=== PATIENT | female | born 1990 | race Caucasian/White ===

== ENCOUNTER 2017-06-29 19:15 | Emergency (ER) | payer OTHER ==
[2017-06-29] MEDS ORDERED: Bacitracin Oint 1 GM U/D Packet TOP ONE (21:25)
--- NOTE | 2017-06-29 21:30 | EDM.PDOC ---
ED HPI GENERAL MEDICAL PROBLEM - General Chief Complaint: Laceration Stated Complaint: CUT PINKY AND RING FINGER RIGHT HAND Time Seen by Provider: 06/29/17 21:20 Source of Information: Reports: Patient History Limitations: Reports: No Limitations - History of Present Illness INITIAL COMMENTS - FREE TEXT/NARRATIVE: laceration to 4th and 5th finger; this is a 26 year old female present to ER for laceration repair. She was carving pumpkins with her daughter when the paring knife slipped. bleeding controlled with wash cloth. no other concerns. Td up to date. 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: Dressing(s) right 4th and 5th finger Pain Score (Numeric/FACES): 1 - Related Data Allergies Allergy/AdvReac Type Severity Reaction Status Date / Time No Known Allergies Allergy Verified 06/29/17 20:50 Home Meds: Home Meds Dextroamphetamine/Amphetamine [Adderall Xr 30 mg Capsule] 30 mg PO DAILY [History] Escitalopram Oxalate [Lexapro] 2.5 mg PO DAILY 06/29/17 [History] 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: Psychiatric History: Reports: Anxiety - Infectious Disease History Infectious Disease History: Reports: Chicken Pox - Past Surgical History GI Surgical History: Reports: Hernia Repair/Other Social & Family History - Tobacco Use Smoking Status *Q: Never Smoker - Caffeine Use Caffeine Use: Reports: Coffee, Soda, Tea - Recreational Drug Use Recreational Drug Use: No - Living Situation & Occupation Occupation: Employed ([employer] 10 years.) ED ROS GENERAL - Review of Systems Review Of Systems: See Below Constitutional: Reports: No Symptoms Skin: Reports: Wound Hematologic/Lymphatic: Reports: No Symptoms Immunologic: Reports: No Symptoms ED EXAM, SKIN/RASH Exam: See Below Exam Limited By: No Limitations General Appearance: Alert, WD/WN, No Apparent Distress Head: Atraumatic, Normocephalic Neck: Supple Respiratory/Chest: No Respiratory Distress Extremities: Normal Inspection, Normal Capillary Refill, Other (laceration noted to right palmar side of finger 4,5) Neurological: Alert, Oriented Psychiatric: Normal Affect, Normal Mood Skin: Warm, Dry, No Rash, Wound/Incision Location, Skin: Other (laceration to palmar side of fingers 4th and 5th.) Characteristics: Linear Associated features: Tenderness Lymphatic: No Adenopathy ED SKIN PROCEDURES - Laceration/Wound Repair Right Anterior Proximal Finger Lac/Wound length In cm: 1 (right 5th finger) Appearance: Subcutaneous Distal NVT: Neuro & Vascular Intact Anesthetic Type: Local Local Anesthesia - Lidocaine (Xylocaine): 1% Plain Local Anesthetic Volume: 1cc Skin Prep: Chlorhexidine (Hibiciens), Saline Exploration/Debridement/Repair: Wound Explored Closed with: Sutures Suture Size: 4-0 # of Sutures: 3 Suture Type: Prolene, Interrupted, Simple Sterile Dressing Applied: Nurse Tetanus Status Addressed: Yes (td up to date) Complications: No Right Proximal Finger Lac/Wound length In cm: 1 (rt 4th finger) Appearance: Subcutaneous Distal NVT: Neuro & Vascular Intact Anesthetic Type: Local Local Anesthesia - Lidocaine (Xylocaine): 1% Plain Local Anesthetic Volume: 1cc Skin Prep: Chlorhexidine (Hibiciens) Exploration/Debridement/Repair: Wound Explored Closed with: Sutures Suture Size: 4-0 # of Sutures: 3 Suture Type: Prolene, Interrupted, Simple Sterile Dressing Applied: Nurse Tetanus Status Addressed: Yes Complications: No Course - Vital Signs Last Recorded V/S: Last Vital Signs Temp 37.3 C 06/29/17 20:51 Pulse 100 06/29/17 20:51 Resp 17 06/29/17 20:51 BP 126/74 06/29/17 20:51 Pulse Ox 99 06/29/17 20:51 - Orders/Labs/Meds Meds: Medications Discontinued Medications Generic Name Dose Route Start Last Admin Trade Name Freq PRN Reason Stop Dose Admin Bacitracin 1 dose 06/29/17 21:25 Bacitracin Oint 1 Gm TOP 06/29/17 21:26 ONETIME ONE Lidocaine HCl 5 ml 06/29/17 21:23 Xylocaine-Mpf 1% INJECT 06/29/17 21:24 ONETIME ONE Departure - Departure Time of Disposition: 22:12 Disposition: Home, Self-Care 01 Condition: Good Clinical Impression: Laceration of right ring finger, Laceration of right little finger - Discharge Information Instructions: Stitches, Falls Of Rough, or Adhesive Wound Closure, [id number] Referrals: PCP,None [Primary Care Provider] - Forms: ED Department Discharge Care Plan Goals: laceration repair with sutures to right 4,5 finger -apply antibiotic ointment to wound two times a day for 3 days, then keep clean and dry -sutures out in 7 to 10 days -take over the counter Tylenol or Motrin for pain -return to clinic, urgent care or ER for any signs of infection; increased pain , fever, chills, redness, drainage or any concerns - Problem List & Annotations (1) Laceration of right ring finger SNOMED Code(s): 532468760 Code(s): S61.214A - LACERATION W/O FB OF R RNG FNGR W/O DAMAGE TO NAIL, INIT Status: Acute Priority: High Current Visit: Yes (2) Laceration of right little finger SNOMED Code(s): 763352001 Code(s): S61.216A - LAC W/O FB OF R LITTLE FINGER W/O DAMAGE TO NAIL, INIT Status: Acute Priority: High Current Visit: Yes Qualifiers: Encounter type: initial encounter Damage to nail status: without damage Foreign body presence: without foreign body Qualified Code(s): S61.216A - Laceration without foreign body of right little finger without damage to nail, initial encounter - Problem List Review Problem List Initiated/Reviewed/Updated: Yes - Assessment/Plan Plan: laceration repair with sutures to right 4,5 finger -apply antibiotic ointment to wound two times a day for 3 days, then keep clean and dry -sutures out in 7 to 10 days -take over the counter Tylenol or Motrin for pain -return to clinic, urgent care or ER for any signs of infection; increased pain , fever, chills, redness, drainage or any concerns
== END 2017-06-29 22:28 | disposition home or self-care (01) ==
LOC: JP.ED 19:15
DX: S61.214A Laceration without foreign body of right ring finger without damage to nail, initial encounter (principal); S61.216A Laceration without foreign body of right little finger without damage to nail, initial encounter; W26.0XXA Contact with knife, initial encounter
CPT/HCPCS: 12001; 99283; 99283-25

== ENCOUNTER 2017-09-22 03:17 | Emergency (ER) | payer OTHER ==
--- NOTE | 2017-09-22 04:10 | EDM.PDOC ---
ED HPI GENERAL MEDICAL PROBLEM - General Chief Complaint: Abdominal Pain Stated Complaint: ABDOMINAL PAIN Time Seen by Provider: 09/22/17 03:50 Source of Information: Reports: Patient, RN History Limitations: Reports: No Limitations - History of Present Illness INITIAL COMMENTS - FREE TEXT/NARRATIVE: 27 yo female presents with nausea and no vomiting for the past couple weeks. She had taken a home test in Aug that was positive, but then had a heavy period after that. Is new in the area from [place] so didn't have anyone to go to so did nothing. Here now because the nausea is getting worse and keeping her awake. No dysuria. Mild low abdominal discomfort. No fever. Onset: Gradual Duration: Week(s):, Constant Location: Reports: Abdomen Quality: Reports: Dull Severity: Mild Improves with: Reports: None Worsens with: Reports: None Context: Reports: Other (Has IUD) Associated Symptoms: Reports: Nausea/Vomiting (No vomiting) Treatments INVENTORY SPECIALIST: Reports: Other (see below) (none) lower abdomen Pain Score (Numeric/FACES): 4 - Related Data Allergies Allergy/AdvReac Type Severity Reaction Status Date / Time No Known Allergies Allergy Verified 09/22/17 03:35 Home Meds: Home Meds Dextroamphetamine/Amphetamine [Adderall Xr 30 mg Capsule] 30 mg PO DAILY [History] Escitalopram Oxalate [Lexapro] 2.5 mg PO DAILY 06/29/17 [History] 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 Psychiatric History: Reports: Anxiety, Depression - Infectious Disease History Infectious Disease History: Reports: Chicken Pox - Past Surgical History GI Surgical History: Reports: Hernia Repair/Other Other Female Surgeries/Procedures: IUD Social & Family History - Tobacco Use Smoking Status *Q: Former Smoker Used Tobacco, but Quit: Yes Month Tobacco Last Used: 6 months ago - Caffeine Use Caffeine Use: Reports: Coffee, Soda - Recreational Drug Use Recreational Drug Use: No - Living Situation & Occupation Occupation: Employed ([employer] x 10 years.) ED ROS GENERAL - Review of Systems Review Of Systems: See Below Constitutional: Reports: No Symptoms HEENT: Reports: No Symptoms Respiratory: Reports: No Symptoms Cardiovascular: Reports: No Symptoms Endocrine: Reports: No Symptoms GI/Abdominal: Reports: Abdominal Pain (mild, low), Nausea (mild). Denies: Black Stool, Bloody Stool, Constipation, Diarrhea, Distension, Hematemesis, Hematochezia, Melena, Vomiting : Reports: No Symptoms Musculoskeletal: Reports: No Symptoms Skin: Reports: No Symptoms Neurological: Reports: No Symptoms ED EXAM, GI/ABD - Physical Exam Exam: See Below Exam Limited By: No Limitations General Appearance: Alert, WD/WN, No Apparent Distress Eyes: Bilateral: Normal Appearance Ears: Normal External Exam, Normal Canal, Hearing Grossly Normal Nose: Normal Inspection, Normal Mucosa Throat/Mouth: Normal Inspection, Normal Lips, Normal Oropharynx, Normal Voice, No Airway Compromise Head: Atraumatic, Normocephalic Neck: Normal Inspection, Supple Respiratory/Chest: No Respiratory Distress, Lungs Clear, Normal Breath Sounds, No Accessory Muscle Use Cardiovascular: Regular Rate, Rhythm, No Edema GI/Abdominal Exam: Normal Bowel Sounds, Soft, Tender (Very slight suprapubic). No: No Distention, Distended, Rigid, Rebound, Abnormal Bowel Sounds, Hernia, Mass Back Exam: Normal Inspection. No: CVA Tenderness (R), CVA Tenderness (L) Extremities: Normal Inspection, Normal Range of Motion, Non-Tender, No Pedal Edema Neurological: Alert, Oriented, CN II-XII Intact, Normal Cognition, No Motor/ Sensory Deficits Psychiatric: Normal Affect, Normal Mood Skin Exam: Warm, Dry, Intact, Normal Color, No Rash Lymphatic: No Adenopathy Course - Vital Signs Last Recorded V/S: Last Vital Signs Temp 36.4 C 09/22/17 03:32 Pulse 89 09/22/17 03:32 Resp 16 09/22/17 03:32 BP 121/79 09/22/17 03:32 Pulse Ox 96 09/22/17 03:32 Departure - Departure Time of Disposition: 04:12 Disposition: Home, Self-Care 01 Condition: Good Clinical Impression: Nausea - Discharge Information Referrals: PCP,None [Primary Care Provider] - Forms: ED Department Discharge Additional Instructions: Use Zofran as needed for nausea control. Use acetaminophen as needed for pain relief. Get in to the clinic to get established for care adalberto and to decide what to do with your IUD.
== END 2017-09-22 04:14 | disposition home or self-care (01) ==
LOC: JP.ED 03:17
DX: R11.0 Nausea (principal); F32.9 Major depressive disorder, single episode, unspecified
CPT/HCPCS: 99284

== ENCOUNTER 2019-04-01 09:02 | Emergency (ER) | payer OTHER ==
[2019-04-01] MEDS ORDERED: Tetracaine HCl/PF 0.5% 4 ML Bottle EYERT ONE (09:16)
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
[2019-04-01] MEDS ORDERED: Gentamicin 0.3% Ophth Soln 5 ML Bottle EYERT ONE (09:30)
[2019-04-01] MEDS ORDERED: Ibuprofen 600 MG Tab PO ONE (09:47)
== END 2019-04-01 09:50 | disposition home or self-care (01) ==
LOC: JP.ED 09:02
DX: S05.01XA Injury of conjunctiva and corneal abrasion without foreign body, right eye, initial encounter (principal); H00.033 Abscess of eyelid right eye, unspecified eyelid; Z79.899 Other long term (current) drug therapy; F41.9 Anxiety disorder, unspecified; F32.9 Major depressive disorder, single episode, unspecified; X58.XXXA Exposure to other specified factors, initial encounter
CPT/HCPCS: 99283; A9270

== ENCOUNTER 2019-04-07 14:19 | Emergency (ER) | payer OTHER ==
[2019-04-07] MEDS ORDERED: Bacitracin Oint 1 GM U/D Packet TOP ONE (14:44)
--- NOTE | 2019-04-07 14:49 | EDM.PDOC ---
ED HPI GENERAL MEDICAL PROBLEM - General Chief Complaint: Laceration Stated Complaint: RIGHT HAND CUT Time Seen by Provider: 04/07/19 14:40 Source of Information: Reports: Patient History Limitations: Reports: No Limitations - History of Present Illness INITIAL COMMENTS - FREE TEXT/NARRATIVE: Caridad is a 28 year old female, otherwise healthy, presents to the ED today with right hand laceration after a glass broke while doing dishes today. DT up to date, denies any injuries. 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 ED EXAM, SKIN/RASH Exam: See Below Exam Limited By: No Limitations General Appearance: Alert, WD/WN, No Apparent Distress Throat/Mouth: Normal Inspection Head: Atraumatic Neck: Supple Respiratory/Chest: No Respiratory Distress Cardiovascular: Regular Rate, Rhythm Extremities: Normal Inspection Neurological: Alert, Oriented, CN II-XII Intact Psychiatric: Normal Affect, Normal Mood Skin: Warm, Dry, Other (1 cm u shaped laceration to right distal fifth metacarpal region, dorsal apsect, full flexion/extension of digits) Lymphatic: No Adenopathy ED SKIN PROCEDURES - Laceration/Wound Repair Right Dorsal Hand Anesthetic Type: Local Local Anesthesia - Lidocaine (Xylocaine): 1% Plain Local Anesthetic Volume: 3cc Skin Prep: Chlorhexidine (Hibiciens) Closed with: Sutures Suture Size: 5-0 # of Sutures: 4 Course - Vital Signs Last Recorded V/S: Last Vital Signs Temp 35.4 C 04/07/19 14:41 Pulse 100 04/07/19 14:41 Resp 19 04/07/19 14:41 BP 134/92 H 04/07/19 14:41 Pulse Ox 97 04/07/19 14:41 Caridad is a 28 year old female who presents to the ED today after sustaining a right hand laceration. DT up to date. Suture repair done as noted above, no evidence of FB, ligamentous or tendon injury. Wound care discussed, SR in 7 days. Reasons to return to the ED discussed, patient agreeable and discharged in stable condition. - Orders/Labs/Meds Orders: Active Orders 24 hr Category Date Time Status Bacitracin [Bacitracin Oint 1 GM] Med 04/07/19 14:44 Once 1 dose TOP ONETIME ONE Meds: Medications Discontinued Medications Generic Name Dose Route Start Last Admin Trade Name Freq PRN Reason Stop Dose Admin Lidocaine HCl 5 ml 04/07/19 14:43 Xylocaine-Mpf 1% INJECT 04/07/19 14:44 ONETIME ONE Departure - Departure Time of Disposition: 15:15 Disposition: Home, Self-Care 01 Clinical Impression: Laceration of hand Qualifiers: Encounter type: initial encounter Foreign body presence: without foreign body Laterality: right Qualified Code(s): S61.411A - Laceration without foreign body of right hand, initial encounter - Discharge Information Instructions: Laceration Care, Adult Referrals: PCP,None [Primary Care Provider] - Additional Instructions: Suture removal in 7 days. Ibuprofen/Tylenol for pain as needed. Bacitracin twice daily for 3 days. - My Orders Last 24 Hours: My Active Orders 04/07/19 14:44 Bacitracin [Bacitracin Oint 1 GM] 1 dose TOP ONETIME ONE - Assessment/Plan Last 24 Hours: My Active Orders 04/07/19 14:44 Bacitracin [Bacitracin Oint 1 GM] 1 dose TOP ONETIME ONE
== END 2019-04-07 15:26 | disposition home or self-care (01) ==
LOC: JP.ED 14:19
DX: S61.411A Laceration without foreign body of right hand, initial encounter (principal); F41.9 Anxiety disorder, unspecified; F32.9 Major depressive disorder, single episode, unspecified; Z79.899 Other long term (current) drug therapy; Z88.0 Allergy status to penicillin; W25.XXXA Contact with sharp glass, initial encounter
CPT/HCPCS: 12001; 99282; J2001

== ENCOUNTER 2019-05-29 11:27 | Emergency (ER) | payer OTHER ==
[2019-05-29] MEDS ORDERED: fentaNYL 100 MCG/2 ML SDV NASBOTH ONE (14:07)
[2019-05-29] MEDS ORDERED: Ondansetron 4 MG Tab.DIS PO ONE (14:08)
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
[2019-06-01 11:08] LABS: CHLAMYDIA TRACHOMATIS, NAA Negative (Negative); NEISSERIA GONORRHOEAE, NAA Negative (Negative)
== END 2019-05-29 18:20 | disposition home or self-care (01) ==
LOC: JP.ED 11:27
DX: T74.21XA Adult sexual abuse, confirmed, initial encounter (principal); S00.81XA Abrasion of other part of head, initial encounter; F32.9 Major depressive disorder, single episode, unspecified; F41.9 Anxiety disorder, unspecified; Z88.0 Allergy status to penicillin; Z79.899 Other long term (current) drug therapy
CPT/HCPCS: 36415; 70450; 70486; 84703; 86695; 86696; 86704; 87210; 87389; 87449; 87491; 87591; 99285; A9270; J3010

== ENCOUNTER 2019-05-29 11:27 | Emergency (ER) | payer OTHER | END 2019-05-29 18:20 | disposition home or self-care (01) | LOC: JP.ED 11:27 | DX: Z53.21 Procedure and treatment not carried out due to patient leaving prior to being seen by health care provider (principal) | CPT/HCPCS: 70450; 70486; A9270-GY; J3010 ==

== ENCOUNTER 2021-04-04 16:30 | Emergency (ER) | payer MEDICAID, OTHER ==
[2021-04-04] MEDS ORDERED: diphenhydrAMINE 50 MG/ML SDV IVPUSH ONE (17:21)
[2021-04-04] MEDS ORDERED: Sodium Chloride 0.9% 10 ML Syringe FLUSH PRN (17:21)
[2021-04-04] MEDS ORDERED: Lactated Ringers 1,000 ML IV ONE (17:21)
[2021-04-04] MEDS ORDERED: Acetaminophen 325 MG Tab PO ONE (17:22)
--- NOTE | 2021-04-04 17:25 | EDM.PDOC ---
ED HPI GENERAL MEDICAL PROBLEM - General Chief Complaint: Headache Stated Complaint: HEADACHE/MIGRAINE Time Seen by Provider: 04/04/21 17:14 Source of Information: Reports: Patient, RN Notes Reviewed History Limitations: Reports: No Limitations - History of Present Illness INITIAL COMMENTS - FREE TEXT/NARRATIVE: 30-year-old female presents emergency department day complaint of headache she is currently 28 weeks intrauterine states that headache for the last couple days did try some Tylenol minimal relief she is not really having any difficulties with vision no spots no visual pain no problems with urination she still feeling baby move has not had any big gush of fluid no vaginal bleeding headache Pain Score (Numeric/FACES): 3 - Related Data Allergies Allergy/AdvReac Type Severity Reaction Status Date / Time Penicillins Allergy Hives Verified 04/04/21 16:57 Home Meds: Home Meds Sertraline [Zoloft] 25 mg PO DAILY 04/04/21 [History] 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 Psychiatric History: Reports: Anxiety, Depression - Infectious Disease History Infectious Disease History: Reports: Chicken Pox - Past Surgical History GI Surgical History: Reports: Hernia Repair/Other, Other (See Below) Other GI Surgeries/Procedures: volvulus Other Female Surgeries/Procedures: IUD Social & Family History - Tobacco Use Tobacco Use Status *Q: Never Tobacco User - Caffeine Use Caffeine Use: Reports: Coffee, Soda - Recreational Drug Use Recreational Drug Use: No - Living Situation & Occupation Occupation: Employed ([employer] x 10 years.) ED ROS GENERAL - Review of Systems Review Of Systems: See Below Respiratory: Reports: No Symptoms Cardiovascular: Reports: No Symptoms GI/Abdominal: Reports: No Symptoms Neurological: Reports: Headache - Physical Exam Exam: See Below Exam Limited By: No Limitations General Appearance: Alert, WD/WN, No Apparent Distress Eye Exam: Bilateral Eye: EOMI, Normal Fundi, PERRL Respiratory/Chest: No Respiratory Distress Neuro Exam (Abbreviated): Alert, Oriented, CN II-XII Intact, No Motor/Sensory Deficits Course - Vital Signs Last Recorded V/S: Last Vital Signs Temp 97.6 F 04/04/21 16:59 Pulse 83 04/04/21 17:34 Resp 12 04/04/21 17:34 BP 104/57 L 04/04/21 17:34 Pulse Ox 99 04/04/21 17:34 - Orders/Labs/Meds Orders: Active Orders 24 hr Category Date Time Status Peripheral IV Care [RC] . DIRECTED Care 04/04/21 17:21 Active Sodium Chloride 0.9% [Saline Flush] Med 04/04/21 17:21 Active 10 ml FLUSH ASDIRECTED PRN Peripheral IV Insertion Adult [OM.PC] Urgent Oth 04/04/21 17:21 Ordered Medication Orders Sodium Chloride (Sodium Chloride 0.9% 10 Ml Syringe) 10 ml FLUSH ASDIRECTED PRN PRN Reason: Keep Vein Open Last Admin: 04/04/21 17:34 Dose: 10 ml Documented by: JERRY Meds: Medications Generic Name Dose Route Start Last Admin Trade Name Freq PRN Reason Stop Dose Admin Sodium Chloride 10 ml 04/04/21 17:21 04/04/21 17:34 Sodium Chloride 0.9% 10 Ml Syringe FLUSH 10 ml ASDIRECTED PRN Administration Keep Vein Open Discontinued Medications Generic Name Dose Route Start Last Admin Trade Name Freq PRN Reason Stop Dose Admin Acetaminophen 975 mg 04/04/21 17:22 04/04/21 17:33 Acetaminophen 325 Mg Tab PO 04/04/21 17:23 975 mg NOW ONE Administration Diphenhydramine HCl 25 mg 04/04/21 17:21 04/04/21 17:33 Diphenhydramine 50 Mg/Ml Sdv IVPUSH 04/04/21 17:22 25 mg ONETIME ONE Administration Lactated Ringer's 1,000 mls @ 999 mls/hr 04/04/21 17:21 04/04/21 17:34 Ringers, Lactated IV 04/04/21 18:21 999 mls/hr BOLUS ONE Administration Departure - Departure Time of Disposition: 19:03 Disposition: Home, Self-Care 01 Condition: Fair Clinical Impression: Headache in Qualifiers: Trimester: third trimester Qualified Code(s): O26.893 - Other specified related conditions, third trimester; R51.9 - Headache, unspecified - Discharge Information Instructions: General Headache Without Cause, [id number] Referrals: Aura Rebolledo CNM [Primary Care Provider] - Forms: ED Department Discharge Additional Instructions: Continue with your regular medications, follow-up with your OB provider next week, call return to the emergency department worsening symptoms Sepsis Event Note (ED) - Evaluation Sepsis Screening Result: No Definite Risk - Focused Exam Vital Signs: Vital Signs Temp Pulse Resp BP Pulse Ox 04/04/21 17:34 83 12 104/57 L 99 04/04/21 16:59 97.6 F 85 16 111/62 98 04/04/21 16:42 97.6 F 85 16 111/62 98 - My Orders Last 24 Hours: My Active Orders 04/04/21 17:21 Peripheral IV Care [RC] . DIRECTED Sodium Chloride 0.9% [Saline Flush] 10 ml FLUSH ASDIRECTED PRN Peripheral IV Insertion Adult [OM.PC] Urgent - Assessment/Plan Last 24 Hours: My Active Orders 04/04/21 17:21 Peripheral IV Care [RC] . DIRECTED Sodium Chloride 0.9% [Saline Flush] 10 ml FLUSH ASDIRECTED PRN Peripheral IV Insertion Adult [OM.PC] Urgent Plan: Assessment Acuity = acute Site and laterality = headache Etiology = unknown Manifestations = none Location of injury = Home Lab values = none Plan Headache resolved combination 1 L fluids, Benadryl and Tylenol she will follow- up with her OB provider next week This note was dictated using [employer] voice recognition software please call with any questions on syntax or grammar.
== END 2021-04-04 19:12 | disposition home or self-care (01) ==
LOC: JP.ED 16:30
DX: O99.891 Other specified diseases and conditions complicating pregnancy (principal); R51.9 Headache, unspecified; Z88.0 Allergy status to penicillin; Z79.899 Other long term (current) drug therapy; Z3A.28 28 weeks gestation of pregnancy
CPT/HCPCS: 96365; 99283; A9270; J1200; J7120

== ENCOUNTER 2021-06-16 02:48 | Inpatient (IN) | payer OTHER, MEDICAID ==
[2021-06-16] MEDS ORDERED: ePHEDrine 50 MG/ML SDV ONE (06:09)
[2021-06-16] MEDS ORDERED: Lidocaine 1% 50 ML MDV ONE (06:10)
--- NOTE | 2021-06-16 06:52 | PCM.LDHP ---
L&D History of Present Illness - General Date of Service: 06/16/21 Admit Problem/Dx: Admission Diagnosis/Problem Admission Diagnosis/Problem Source of Information: Patient History Limitations: Reports: No Limitations - History of Present Illness Introduction:: 06/16/21 Patient is a 30 yo at 38 6/7 weeks gestation. She is here in active labor at term. She has had an uncomplicated . Contractions started last evening, mild, around 7 pm. She was able to fall asleep but contractions woke her up at 1230 and again at 2. At 2 am is when they became much stronger to the point she could not sleep. They have progressively gotten stronger since that time. She is GBS negative, A positive blood type, rubella immune, HIV/RPR/Hep B/C all non reactive. First was an uncomplicated water delivery. She plans for epidural this time. 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 LMP (Approximate): Other OB/BYN History: G-1 P-1 Psychiatric History: Reports: Anxiety, Depression - Infectious Disease History Infectious Disease History: Reports: Chicken Pox - Past Surgical History GI Surgical History: Reports: Hernia Repair/Other, Other (See Below) Other GI Surgeries/Procedures: volvulus Other Female Surgeries/Procedures: IUD Social & Family History - Caffeine Use Caffeine Use: Reports: Coffee, Soda - Living Situation & Occupation Occupation: Employed ([employer] x 10 years.) H&P Review of Systems - Review of Systems: Review Of Systems: See Below General: Reports: No Symptoms HEENT: Reports: No Symptoms Pulmonary: Reports: No Symptoms Cardiovascular: Reports: No Symptoms Gastrointestinal: Reports: No Symptoms Genitourinary: Reports: No Symptoms Musculoskeletal: Reports: No Symptoms Skin: Reports: No Symptoms Psychiatric: Reports: No Symptoms Neurological: Reports: No Symptoms Hematologic/Lymphatic: Reports: No Symptoms Immunologic: Reports: No Symptoms L&D Exam - Exam Exam: See Below - OB Specific Contraction Duration (sec): 80 Contraction Frequency (min): 2 Contraction Intensity: Strong Movement: Active Heart Tones: Present Heart Tones per Min: 130 Heart Rate (FHR) Variability: Moderate (6-25 bpm) Presentation: Vertex Estimated Weight: 7 lb - Exam General: Alert, Oriented HEENT: PERRLA, Pupils Equal, Pupils Reactive Neck: Supple, Trachea Midline Lungs: Clear to Auscultation, Normal Respiratory Effort Cardiovascular: Regular Rate, Regular Rhythm GI/Abdominal Exam: Normal Bowel Sounds, Soft, Pelvis Stable Rectal Exam: Normal Exam Genitourinary: Normal external exam, Cervical dilitation, Enlarged uterus. No: Vaginal bleeding Back Exam: Normal Inspection, Full Range of Motion Extremities: Normal Inspection, Non-Tender, No Pedal Edema Skin: Warm, Dry, Intact Neurological: Cranial Nerves Intact, Reflexes Equal Bilateral Psychiatric: Alert, Normal Affect, Normal Mood - Patient Data Lab Results Last 24 hrs: Laboratory Results - last 24 hr 06/16/21 06/16/21 Range/Units 03:15 03:15 WBC 15.4 H (4.5-11.0) K/uL RBC 4.29 (3.30-5.50) M/uL Hgb 12.0 (12.0-15.0) g/dL Hct 35.8 L (36.0-48.0) % MCV 83 (80-98) fL MCH 28 (27-31) pg MCHC 34 (32-36) % Plt Count 332 (150-400) K/uL Neut % (Auto) 83.0 H (36-66) % Lymph % (Auto) 9.4 L (24-44) % Cuming % (Auto) 6.7 H (2-6) % Eos % (Auto) 0.8 L (2-4) % Baso % (Auto) 0.1 (0-1) % SARS-CoV-2 RNA (CORBY) Negative (NEGATIVE) Result Diagrams: 06/16/21 03:15 - Problem List (1) Active labor at term SNOMED Code(s): 11102972 ICD Code: [id number] - Status: Acute Current Visit: Yes Problem List Initiated/Reviewed/Updated: Yes Orders Last 24hrs: Active Orders 24 hr Category Date Time Status DRUG SCREEN, URINE [URCHEM] Routine Lab 06/16/21 03:15 Received UA W/MICROSCOPIC [URIN] Routine Lab 06/16/21 03:15 Received Assessment/Plan Comment:: 06/16/21 in active labor at 38 6/7 weeks gestation GBS negative Epidural in place, pain down to 2/10 Membranes intact Category 1 tracing, did not have a nice strip prior to epidural due to patient on ball but doptone during that time 130 Plan: Anticipate Continue to monitor labor progress
[2021-06-16] MEDS ORDERED: Ropivacaine 100 ML ONE (06:53)
[2021-06-16] MEDS ORDERED: Ondansetron 4 MG/2 ML SDV IV PRN (06:54)
[2021-06-16] MEDS ORDERED: Sodium Chloride 0.9% 10 ML Syringe FLUSH PRN (06:54)
[2021-06-16] MEDS ORDERED: Lactated Ringers 1,000 ML IV SCH (07:00)
--- NOTE | 2021-06-16 07:22 | ANES ---
DATE OF SERVICE: 06/16/2021 INDICATIONS: Caridad is an OB patient of Aura Rebolledo. She is here today in our Labor and Delivery department. I was asked to consult the patient for labor epidural. Upon arrival, I found a healthy female at the edge of the bed. I reviewed with her the procedure as well as her history and lab work, found no contraindication to epidural placement. TECHNIQUE: Again, I had her seated at the edge of the bed. After consent was signed, Betadine prep x3 to lumbar region. Sterile drape was placed. 1% lidocaine skin wheal as well as deep at the L3-L4 region. A 17-gauge Tuohy was placed to loss of resistance with ease. Negative CSF, negative heme, negative paresthesia. I inserted a catheter to 12.5 cm. I dosed that with 3 mL of 1.5% lidocaine and 1:200,000 epinephrine and the catheter was secured to her back. Placed her in a supine position, and after negative sequelae was noted from test dose, I dosed her with 12 mL 0.2% ropivacaine and 12 mL an hour of that same 0.2% ropivacaine. She tolerated the procedure quite well. Please refer to nursing notes for vital signs and neuro status, which were unchanged and within normal limits. I reported off to the nurse as well as the provider. Eric Levi CRNA /[id number]
--- NOTE | 2021-06-16 10:05 | PCM.PN ---
<Sandra Mckeon - Last Filed: 06/16/21 10:00> - General Info Date of Service: 06/16/21 Admission Dx/Problem (Free Text): Admission Diagnosis/Problem Admission Diagnosis/Problem Functional Status: Reports: Pain Controlled - Review of Systems General: Reports: No Symptoms HEENT: Reports: No Symptoms Pulmonary: Reports: No Symptoms Cardiovascular: Reports: No Symptoms Gastrointestinal: Reports: No Symptoms Genitourinary: Reports: No Symptoms Musculoskeletal: Reports: No Symptoms Skin: Reports: No Symptoms Neurological: Reports: No Symptoms Psychiatric: Reports: No Symptoms Systems Review Comment:: 06/16/21 At 0720, SVE was 6/100/-1 with EFM showing baseline of 140bpm, moderate variability, some accelerations and variable decels. She is joe every 3 minutes and they palpate strong. Discussed pros and cons of AROM and obtained informed consent. AROM at 0720 for clear fluid. She is comfortable with her epidural in place and has strong support from her partner. Will anticipate . - Patient Data Vitals - Most Recent: Last Vital Signs Temp 96.2 F L 06/16/21 07:00 Pulse 90 06/16/21 07:00 Resp 16 06/16/21 07:00 BP 108/61 06/16/21 07:00 Pulse Ox 98 06/16/21 07:00 Lab Results Last 24 Hours: Laboratory Results - last 24 hr 06/16/21 06/16/21 06/16/21 Range/Units 03:15 03:15 03:15 WBC 15.4 H (4.5-11.0) K/uL RBC 4.29 (3.30-5.50) M/uL Hgb 12.0 (12.0-15.0) g/dL Hct 35.8 L (36.0-48.0) % MCV 83 (80-98) fL MCH 28 (27-31) pg MCHC 34 (32-36) % Plt Count 332 (150-400) K/uL Neut % (Auto) 83.0 H (36-66) % Lymph % (Auto) 9.4 L (24-44) % [place] % (Auto) 6.7 H (2-6) % Eos % (Auto) 0.8 L (2-4) % Baso % (Auto) 0.1 (0-1) % Urine Color Yellow (YELLOW) Urine Appearance Cloudy A (CLEAR) Urine pH 6.0 (5.0-8.0) Ur Specific Hooper >= 1.030 (1.008-1.030) Urine Protein 30 H (NEGATIVE) mg/dL Urine Glucose (UA) Negative (NEGATIVE) mg/dL Urine Ketones 80 H (NEGATIVE) mg/dL Urine Occult Blood Small H (NEGATIVE) Urine Nitrite Negative (NEGATIVE) Urine Bilirubin Small H (NEGATIVE) Urine Urobilinogen 0.2 (0.2-1.0) EU/dL Ur Leukocyte Esterase Negative (NEGATIVE) Urine RBC 5-10 H (0-5) Urine WBC 0-5 (0-5) Ur Epithelial Cells Many Amorphous Sediment Not seen Urine Bacteria Many Urine Mucus Many Urine Opiates Screen Negative (NEGATIVE) Ur Oxycodone Screen Negative (NEGATIVE) Urine Methadone Screen Negative (NEGATIVE) Ur Propoxyphene Screen Negative (NEGATIVE) Ur Barbiturates Screen Negative (NEGATIVE) Ur Tricyclics Screen Negative (NEGATIVE) Ur Phencyclidine Scrn Negative (NEGATIVE) Ur Amphetamine Screen Negative (NEGATIVE) U Methamphetamines Scrn Negative (NEGATIVE) Urine MDMA Screen Negative (NEGATIVE) U Benzodiazepines Scrn Negative (NEGATIVE) U Cocaine Metab Screen Negative (NEGATIVE) U Marijuana (THC) Screen Negative (NEGATIVE) SARS-CoV-2 RNA (CORBY) (NEGATIVE) 06/16/21 Range/Units 03:15 WBC (4.5-11.0) K/uL RBC (3.30-5.50) M/uL Hgb (12.0-15.0) g/dL Hct (36.0-48.0) % MCV (80-98) fL MCH (27-31) pg MCHC (32-36) % Plt Count (150-400) K/uL Neut % (Auto) (36-66) % Lymph % (Auto) (24-44) % [place] % (Auto) (2-6) % Eos % (Auto) (2-4) % Baso % (Auto) (0-1) % Urine Color (YELLOW) Urine Appearance (CLEAR) Urine pH (5.0-8.0) Ur Specific [place] (1.008-1.030) Urine Protein (NEGATIVE) mg/dL Urine Glucose (UA) (NEGATIVE) mg/dL Urine Ketones (NEGATIVE) mg/dL Urine Occult Blood (NEGATIVE) Urine Nitrite (NEGATIVE) Urine Bilirubin (NEGATIVE) Urine Urobilinogen (0.2-1.0) EU/dL Ur Leukocyte Esterase (NEGATIVE) Urine RBC (0-5) Urine WBC (0-5) Ur Epithelial Cells Amorphous Sediment Urine Bacteria Urine Mucus Urine Opiates Screen (NEGATIVE) Ur Oxycodone Screen (NEGATIVE) Urine Methadone Screen (NEGATIVE) Ur Propoxyphene Screen (NEGATIVE) Ur Barbiturates Screen (NEGATIVE) Ur Tricyclics Screen (NEGATIVE) Ur Phencyclidine Scrn (NEGATIVE) Ur Amphetamine Screen (NEGATIVE) U Methamphetamines Scrn (NEGATIVE) Urine MDMA Screen (NEGATIVE) U Benzodiazepines Scrn (NEGATIVE) U Cocaine Metab Screen (NEGATIVE) U Marijuana (THC) Screen (NEGATIVE) SARS-CoV-2 RNA (CORBY) Negative (NEGATIVE) Med Orders - Current: Current Medications Lactated Ringer's (Ringers, Lactated) 1,000 mls @ 125 mls/hr IV ASDIRECTED YOLANDA Oxytocin/Sodium Chloride (Pitocin In Ns 20 Units/1,000 Ml) 20 unit in 1,000 mls @ 999 mls/hr IV ASDIRECTED YOLANDA; Protocol Ondansetron HCl (Ondansetron 4 Mg/2 Ml Sdv) 4 mg IV Q4H PRN PRN Reason: Nausea/Vomiting Sodium Chloride (Sodium Chloride 0.9% 10 Ml Syringe) 10 ml FLUSH ASDIRECTED PRN PRN Reason: Keep Vein Open Discontinued Medications Ephedrine Sulfate (Ephedrine 50 Mg/Ml Sdv) Confirm Administered Dose 50 mg .ROUTE .STK-MED ONE Stop: 06/16/21 06:10 Ropivacaine (Naropin 0.2%) Confirm Administered Dose 100 mls @ as directed .ROUTE .STK-MED ONE Stop: 06/16/21 06:54 Oxytocin/Sodium Chloride (Pitocin In Ns 20 Units/1,000 Ml) Confirm Administered Dose 20 unit in 1,000 mls @ as directed .ROUTE .STK-MED ONE Stop: 06/16/21 06:10 Lidocaine HCl (Lidocaine 1% 50 Ml Mdv) Confirm Administered Dose 100 ml .ROUTE .STK-MED ONE Stop: 06/16/21 06:11 - Exam Urinary Catheter Total Time: 0Days 0Hours - Patient Data Lab Results Last 24 hrs: Laboratory Results - last 24 hr 06/16/21 06/16/21 06/16/21 Range/Units 03:15 03:15 03:15 WBC 15.4 H (4.5-11.0) K/uL RBC 4.29 (3.30-5.50) M/uL Hgb 12.0 (12.0-15.0) g/dL Hct 35.8 L (36.0-48.0) % MCV 83 (80-98) fL MCH 28 (27-31) pg MCHC 34 (32-36) % Plt Count 332 (150-400) K/uL Neut % (Auto) 83.0 H (36-66) % Lymph % (Auto) 9.4 L (24-44) % [place] % (Auto) 6.7 H (2-6) % Eos % (Auto) 0.8 L (2-4) % Baso % (Auto) 0.1 (0-1) % Urine Color Yellow (YELLOW) Urine Appearance Cloudy A (CLEAR) Urine pH 6.0 (5.0-8.0) Ur Specific [place] >= 1.030 (1.008-1.030) Urine Protein 30 H (NEGATIVE) mg/dL Urine Glucose (UA) Negative (NEGATIVE) mg/dL Urine Ketones 80 H (NEGATIVE) mg/dL Urine Occult Blood Small H (NEGATIVE) Urine Nitrite Negative (NEGATIVE) Urine Bilirubin Small H (NEGATIVE) Urine Urobilinogen 0.2 (0.2-1.0) EU/dL Ur Leukocyte Esterase Negative (NEGATIVE) Urine RBC 5-10 H (0-5) Urine WBC 0-5 (0-5) Ur Epithelial Cells Many Amorphous Sediment Not seen Urine Bacteria Many Urine Mucus Many Urine Opiates Screen Negative (NEGATIVE) Ur Oxycodone Screen Negative (NEGATIVE) Urine Methadone Screen Negative (NEGATIVE) Ur Propoxyphene Screen Negative (NEGATIVE) Ur Barbiturates Screen Negative (NEGATIVE) Ur Tricyclics Screen Negative (NEGATIVE) Ur Phencyclidine Scrn Negative (NEGATIVE) Ur Amphetamine Screen Negative (NEGATIVE) U Methamphetamines Scrn Negative (NEGATIVE) Urine MDMA Screen Negative (NEGATIVE) U Benzodiazepines Scrn Negative (NEGATIVE) U Cocaine Metab Screen Negative (NEGATIVE) U Marijuana (THC) Screen Negative (NEGATIVE) SARS-CoV-2 RNA (CORBY) (NEGATIVE) 06/16/21 Range/Units 03:15 WBC (4.5-11.0) K/uL RBC (3.30-5.50) M/uL Hgb (12.0-15.0) g/dL Hct (36.0-48.0) % MCV (80-98) fL MCH (27-31) pg MCHC (32-36) % Plt Count (150-400) K/uL Neut % (Auto) (36-66) % Lymph % (Auto) (24-44) % [place] % (Auto) (2-6) % Eos % (Auto) (2-4) % Baso % (Auto) (0-1) % Urine Color (YELLOW) Urine Appearance (CLEAR) Urine pH (5.0-8.0) Ur Specific [place] (1.008-1.030) Urine Protein (NEGATIVE) mg/dL Urine Glucose (UA) (NEGATIVE) mg/dL Urine Ketones (NEGATIVE) mg/dL Urine Occult Blood (NEGATIVE) Urine Nitrite (NEGATIVE) Urine Bilirubin (NEGATIVE) Urine Urobilinogen (0.2-1.0) EU/dL Ur Leukocyte Esterase (NEGATIVE) Urine RBC (0-5) Urine WBC (0-5) Ur Epithelial Cells Amorphous Sediment Urine Bacteria Urine Mucus Urine Opiates Screen (NEGATIVE) Ur Oxycodone Screen (NEGATIVE) Urine Methadone Screen (NEGATIVE) Ur Propoxyphene Screen (NEGATIVE) Ur Barbiturates Screen (NEGATIVE) Ur Tricyclics Screen (NEGATIVE) Ur Phencyclidine Scrn (NEGATIVE) Ur Amphetamine Screen (NEGATIVE) U Methamphetamines Scrn (NEGATIVE) Urine MDMA Screen (NEGATIVE) U Benzodiazepines Scrn (NEGATIVE) U Cocaine Metab Screen (NEGATIVE) U Marijuana (THC) Screen (NEGATIVE) SARS-CoV-2 RNA (CORBY) Negative (NEGATIVE) Result Diagrams: 06/16/21 03:15 Sepsis Event Note - Evaluation Sepsis Screening Result: No Definite Risk - Focused Exam Vital Signs: Vital Signs Temp Pulse Resp BP Pulse Ox 06/16/21 07:00 96.2 F L 90 16 108/61 98 - Plan Plan:: 06/16/21 in active labor at 38 6/7 weeks gestation GBS negative Epidural in place, pain down to 2/10 Membranes intact Category 1 tracing, did not have a nice strip prior to epidural due to patient on ball but doptone during that time 130 Plan: Anticipate Continue to monitor labor progress <Kesha,Aura - Last Filed: 06/16/21 10:58> - Patient Data Vitals - Most Recent: Last Vital Signs Temp 35.7 C L 06/16/21 07:00 Pulse 90 06/16/21 07:00 Resp 16 06/16/21 07:00 BP 108/61 06/16/21 07:00 Pulse Ox 98 06/16/21 07:00 Lab Results Last 24 Hours: Laboratory Results - last 24 hr 06/16/21 06/16/21 06/16/21 Range/Units 03:15 03:15 03:15 WBC 15.4 H (4.5-11.0) K/uL RBC 4.29 (3.30-5.50) M/uL Hgb 12.0 (12.0-15.0) g/dL Hct 35.8 L (36.0-48.0) % MCV 83 (80-98) fL MCH 28 (27-31) pg MCHC 34 (32-36) % Plt Count 332 (150-400) K/uL Neut % (Auto) 83.0 H (36-66) % Lymph % (Auto) 9.4 L (24-44) % [place] % (Auto) 6.7 H (2-6) % Eos % (Auto) 0.8 L (2-4) % Baso % (Auto) 0.1 (0-1) % Urine Color Yellow (YELLOW) Urine Appearance Cloudy A (CLEAR) Urine pH 6.0 (5.0-8.0) Ur Specific [place] >= 1.030 (1.008-1.030) Urine Protein 30 H (NEGATIVE) mg/dL Urine Glucose (UA) Negative (NEGATIVE) mg/dL Urine Ketones 80 H (NEGATIVE) mg/dL Urine Occult Blood Small H (NEGATIVE) Urine Nitrite Negative (NEGATIVE) Urine Bilirubin Small H (NEGATIVE) Urine Urobilinogen 0.2 (0.2-1.0) EU/dL Ur Leukocyte Esterase Negative (NEGATIVE) Urine RBC 5-10 H (0-5) Urine WBC 0-5 (0-5) Ur Epithelial Cells Many Amorphous Sediment Not seen Urine Bacteria Many Urine Mucus Many Urine Opiates Screen Negative (NEGATIVE) Ur Oxycodone Screen Negative (NEGATIVE) Urine Methadone Screen Negative (NEGATIVE) Ur Propoxyphene Screen Negative (NEGATIVE) Ur Barbiturates Screen Negative (NEGATIVE) Ur Tricyclics Screen Negative (NEGATIVE) Ur Phencyclidine Scrn Negative (NEGATIVE) Ur Amphetamine Screen Negative (NEGATIVE) U Methamphetamines Scrn Negative (NEGATIVE) Urine MDMA Screen Negative (NEGATIVE) U Benzodiazepines Scrn Negative (NEGATIVE) U Cocaine Metab Screen Negative (NEGATIVE) U Marijuana (THC) Screen Negative (NEGATIVE) SARS-CoV-2 RNA (CORBY) (NEGATIVE) 06/16/21 Range/Units 03:15 WBC (4.5-11.0) K/uL RBC (3.30-5.50) M/uL Hgb (12.0-15.0) g/dL Hct (36.0-48.0) % MCV (80-98) fL MCH (27-31) pg MCHC (32-36) % Plt Count (150-400) K/uL Neut % (Auto) (36-66) % Lymph % (Auto) (24-44) % [place] % (Auto) (2-6) % Eos % (Auto) (2-4) % Baso % (Auto) (0-1) % Urine Color (YELLOW) Urine Appearance (CLEAR) Urine pH (5.0-8.0) Ur Specific [place] (1.008-1.030) Urine Protein (NEGATIVE) mg/dL Urine Glucose (UA) (NEGATIVE) mg/dL Urine Ketones (NEGATIVE) mg/dL Urine Occult Blood (NEGATIVE) Urine Nitrite (NEGATIVE) Urine Bilirubin (NEGATIVE) Urine Urobilinogen (0.2-1.0) EU/dL Ur Leukocyte Esterase (NEGATIVE) Urine RBC (0-5) Urine WBC (0-5) Ur Epithelial Cells Amorphous Sediment Urine Bacteria Urine Mucus Urine Opiates Screen (NEGATIVE) Ur Oxycodone Screen (NEGATIVE) Urine Methadone Screen (NEGATIVE) Ur Propoxyphene Screen (NEGATIVE) Ur Barbiturates Screen (NEGATIVE) Ur Tricyclics Screen (NEGATIVE) Ur Phencyclidine Scrn (NEGATIVE) Ur Amphetamine Screen (NEGATIVE) U Methamphetamines Scrn (NEGATIVE) Urine MDMA Screen (NEGATIVE) U Benzodiazepines Scrn (NEGATIVE) U Cocaine Metab Screen (NEGATIVE) U Marijuana (THC) Screen (NEGATIVE) SARS-CoV-2 RNA (CORBY) Negative (NEGATIVE) Med Orders - Current: Current Medications Lactated Ringer's (Ringers, Lactated) 1,000 mls @ 125 mls/hr IV ASDIRECTED YOLANDA Oxytocin/Sodium Chloride (Pitocin In Ns 20 Units/1,000 Ml) 20 unit in 1,000 mls @ 999 mls/hr IV ASDIRECTED YOLANDA; Protocol Ondansetron HCl (Ondansetron 4 Mg/2 Ml Sdv) 4 mg IV Q4H PRN PRN Reason: Nausea/Vomiting Sodium Chloride (Sodium Chloride 0.9% 10 Ml Syringe) 10 ml FLUSH ASDIRECTED PRN PRN Reason: Keep Vein Open Discontinued Medications Ephedrine Sulfate (Ephedrine 50 Mg/Ml Sdv) Confirm Administered Dose 50 mg .ROUTE .STK-MED ONE Stop: 06/16/21 06:10 Ropivacaine (Naropin 0.2%) Confirm Administered Dose 100 mls @ as directed .ROUTE .STK-MED ONE Stop: 06/16/21 06:54 Oxytocin/Sodium Chloride (Pitocin In Ns 20 Units/1,000 Ml) Confirm Administered Dose 20 unit in 1,000 mls @ as directed .ROUTE .STK-MED ONE Stop: 06/16/21 06:10 Lidocaine HCl (Lidocaine 1% 50 Ml Mdv) Confirm Administered Dose 100 ml .ROUTE .STK-MED ONE Stop: 06/16/21 06:11 - Patient Data Lab Results Last 24 hrs: Laboratory Results - last 24 hr 06/16/21 06/16/21 06/16/21 Range/Units 03:15 03:15 03:15 WBC 15.4 H (4.5-11.0) K/uL RBC 4.29 (3.30-5.50) M/uL Hgb 12.0 (12.0-15.0) g/dL Hct 35.8 L (36.0-48.0) % MCV 83 (80-98) fL MCH 28 (27-31) pg MCHC 34 (32-36) % Plt Count 332 (150-400) K/uL Neut % (Auto) 83.0 H (36-66) % Lymph % (Auto) 9.4 L (24-44) % [place] % (Auto) 6.7 H (2-6) % Eos % (Auto) 0.8 L (2-4) % Baso % (Auto) 0.1 (0-1) % Urine Color Yellow (YELLOW) Urine Appearance Cloudy A (CLEAR) Urine pH 6.0 (5.0-8.0) Ur Specific [place] >= 1.030 (1.008-1.030) Urine Protein 30 H (NEGATIVE) mg/dL Urine Glucose (UA) Negative (NEGATIVE) mg/dL Urine Ketones 80 H (NEGATIVE) mg/dL Urine Occult Blood Small H (NEGATIVE) Urine Nitrite Negative (NEGATIVE) Urine Bilirubin Small H (NEGATIVE) Urine Urobilinogen 0.2 (0.2-1.0) EU/dL Ur Leukocyte Esterase Negative (NEGATIVE) Urine RBC 5-10 H (0-5) Urine WBC 0-5 (0-5) Ur Epithelial Cells Many Amorphous Sediment Not seen Urine Bacteria Many Urine Mucus Many Urine Opiates Screen Negative (NEGATIVE) Ur Oxycodone Screen Negative (NEGATIVE) Urine Methadone Screen Negative (NEGATIVE) Ur Propoxyphene Screen Negative (NEGATIVE) Ur Barbiturates Screen Negative (NEGATIVE) Ur Tricyclics Screen Negative (NEGATIVE) Ur Phencyclidine Scrn Negative (NEGATIVE) Ur Amphetamine Screen Negative (NEGATIVE) U Methamphetamines Scrn Negative (NEGATIVE) Urine MDMA Screen Negative (NEGATIVE) U Benzodiazepines Scrn Negative (NEGATIVE) U Cocaine Metab Screen Negative (NEGATIVE) U Marijuana (THC) Screen Negative (NEGATIVE) SARS-CoV-2 RNA (CORBY) (NEGATIVE) 06/16/21 Range/Units 03:15 WBC (4.5-11.0) K/uL RBC (3.30-5.50) M/uL Hgb (12.0-15.0) g/dL Hct (36.0-48.0) % MCV (80-98) fL MCH (27-31) pg MCHC (32-36) % Plt Count (150-400) K/uL Neut % (Auto) (36-66) % Lymph % (Auto) (24-44) % [place] % (Auto) (2-6) % Eos % (Auto) (2-4) % Baso % (Auto) (0-1) % Urine Color (YELLOW) Urine Appearance (CLEAR) Urine pH (5.0-8.0) Ur Specific Hooper (1.008-1.030) Urine Protein (NEGATIVE) mg/dL Urine Glucose (UA) (NEGATIVE) mg/dL Urine Ketones (NEGATIVE) mg/dL Urine Occult Blood (NEGATIVE) Urine Nitrite (NEGATIVE) Urine Bilirubin (NEGATIVE) Urine Urobilinogen (0.2-1.0) EU/dL Ur Leukocyte Esterase (NEGATIVE) Urine RBC (0-5) Urine WBC (0-5) Ur Epithelial Cells Amorphous Sediment Urine Bacteria Urine Mucus Urine Opiates Screen (NEGATIVE) Ur Oxycodone Screen (NEGATIVE) Urine Methadone Screen (NEGATIVE) Ur Propoxyphene Screen (NEGATIVE) Ur Barbiturates Screen (NEGATIVE) Ur Tricyclics Screen (NEGATIVE) Ur Phencyclidine Scrn (NEGATIVE) Ur Amphetamine Screen (NEGATIVE) U Methamphetamines Scrn (NEGATIVE) Urine MDMA Screen (NEGATIVE) U Benzodiazepines Scrn (NEGATIVE) U Cocaine Metab Screen (NEGATIVE) U Marijuana (THC) Screen (NEGATIVE) SARS-CoV-2 RNA (CORBY) Negative (NEGATIVE) Result Diagrams: 06/16/21 03:15 Sepsis Event Note - Focused Exam Vital Signs: Vital Signs Temp Pulse Resp BP Pulse Ox 06/16/21 07:00 35.7 C L 90 16 108/61 98 - Problem List & Annotations (1) Active labor at term SNOMED Code(s): 55229658 Code(s): [id number] - Status: Acute Current Visit: Yes - Problem List Review Problem List Initiated/Reviewed/Updated: Yes - My Orders Last 24 Hours: My Active Orders 06/16/21 06:54 Patient Status [ADT] Routine Communication Order [RC] ASDIRECTED Heart Tones [RC] PER UNIT ROUTINE Notify Provider [RC] PRN Up ad Meeta [RC] ASDIRECTED Vital Signs [RC] PER UNIT ROUTINE Ondansetron [Zofran] 4 mg IV Q4H PRN Sodium Chloride 0.9% [Saline Flush] 10 ml FLUSH ASDIRECTED PRN DVT/VTE Prophylaxis Reflex [OM.PC] Routine Saline Lock Insert [OM.PC] Routine Resuscitation Status Routine 06/16/21 06:55 Notify Provider Vital Signs [RC] PRN VTE/DVT Education [RC] Click to Edit 06/16/21 07:00 Lactated Ringers [Ringers, Lactated] 1,000 ml IV ASDIRECTED Oxytocin/Normal Saline [Pitocin in NS 20 Units/1,000 ML] 20 unit in 1,000 ml IV ASDIRECTED 06/16/21 07:39 Urinary Catheter Assessment [RC] ASDIRECTED 06/16/21 07:45 Jon Catheter Insertion [Insert Urinary Catheter] [OM.PC] Q24H 06/16/21 Breakfast Regular Diet [DIET] - Plan Plan:: I have read this note and assessed patient and agree with the note written by AYDEE Medrano. Aura Rebolledo CNM
--- NOTE | 2021-06-16 10:32 | PCM.DEL ---
L & D Note - General Info Date of Service: 06/16/21 Mother's Due Date: 06/24/21 - Delivery Note Labor: Spontaneous, Augmented by ARM Delivery Outcome: Livebirth Delivery Method: Spontaneous Vaginal Delivery-Single Delivery Mode: Spontaneous Presentation: Left Occiput Anterior (SVETLANA) Nuchal Cord: None Anesthesia Type: Epidural Amniotic Fluid Description: Clear Episiotomy Type: None Laceration: 1st Degree, Labial Suture type: Vicryl Suture size: 4-0 Placenta: Intact, Spontaneous Cord: 3 Vessels Estimated Blood Loss: 350 Resuscitation Needed: Yes : Suctioned, Bulb Syringe, Cathether, Stimulated, Warmer Used Second Stage Interventions: Reports: Second Nurse Assessed Progress of Descent, Second Nurse Reviewed Contraction Pattern, Second Nurse Reviewed Heart Tones, Encouragement Given, Pushing Effectively, Pushing, Knee Chest Position, Pushing, Left Side, Pushing, McRobert's Position, Pushing, Right Side Delivery Comments (Free Text/Narrative):: 06/16/21 Caridad is a 30 y/o female G2 now P2 at 38 weeks and 6 days gestation. She was noted to be complete at 0845 and EFM showed variable decels with contractions and moderate variability. She pushed in a variety of positions with variable decels continuing during contractions and moderate variability. FHT were difficult to trace so a FSE was placed but had a poor signal as well. She was pushing effectively at this time and delivery was imminent. She delivered a baby boy by spontaneous vaginal delivery at 09 in the SVETLANA position, no nuchal cord. The cord was double clamped and cut and brought to the warmer. Baby required bulb suction, deep suction, stimulation, PPV, and CPAP for approximately 2 minutes. APGARs were 6/6/10 at 1/5/10 minutes respectively. He was 7lbs 2oz, noted to have a 3 vessel cord, and was placed skin to skin with mom when stable. The placenta was expressed spontaneously intact. There was no episiotomy but a first degree labial tear was noted. It was repaired with a 3-0 vicryl, 2 in terrupted stitches to achieve approximation and hemostasis. EBL was 350mL. Mother to recovery room in stable condition. to nursery in stable condition. Stages of labor: First: [id number] Second: Third: - General Info Date of Service: 06/16/21 Admission Dx/Problem (Free Text): Admission Diagnosis/Problem Admission Diagnosis/Problem Normal spontaneous vaginal delivery Functional Status: Reports: Pain Controlled - Review of Systems General: Reports: No Symptoms HEENT: Reports: No Symptoms Pulmonary: Reports: No Symptoms Cardiovascular: Reports: No Symptoms Gastrointestinal: Reports: No Symptoms Genitourinary: Reports: No Symptoms Musculoskeletal: Reports: No Symptoms Skin: Reports: No Symptoms Neurological: Reports: No Symptoms Psychiatric: Reports: No Symptoms - Patient Data Vitals - Most Recent: Last Vital Signs Temp 96.2 F L 06/16/21 07:00 Pulse 90 06/16/21 07:00 Resp 16 06/16/21 07:00 BP 108/61 06/16/21 07:00 Pulse Ox 98 06/16/21 07:00 Lab Results Last 24 Hours: Laboratory Results - last 24 hr 06/16/21 06/16/21 06/16/21 Range/Units 03:15 03:15 03:15 WBC 15.4 H (4.5-11.0) K/uL RBC 4.29 (3.30-5.50) M/uL Hgb 12.0 (12.0-15.0) g/dL Hct 35.8 L (36.0-48.0) % MCV 83 (80-98) fL MCH 28 (27-31) pg MCHC 34 (32-36) % Plt Count 332 (150-400) K/uL Neut % (Auto) 83.0 H (36-66) % Lymph % (Auto) 9.4 L (24-44) % Ida % (Auto) 6.7 H (2-6) % Eos % (Auto) 0.8 L (2-4) % Baso % (Auto) 0.1 (0-1) % Urine Color Yellow (YELLOW) Urine Appearance Cloudy A (CLEAR) Urine pH 6.0 (5.0-8.0) Ur Specific [place] >= 1.030 (1.008-1.030) Urine Protein 30 H (NEGATIVE) mg/dL Urine Glucose (UA) Negative (NEGATIVE) mg/dL Urine Ketones 80 H (NEGATIVE) mg/dL Urine Occult Blood Small H (NEGATIVE) Urine Nitrite Negative (NEGATIVE) Urine Bilirubin Small H (NEGATIVE) Urine Urobilinogen 0.2 (0.2-1.0) EU/dL Ur Leukocyte Esterase Negative (NEGATIVE) Urine RBC 5-10 H (0-5) Urine WBC 0-5 (0-5) Ur Epithelial Cells Many Amorphous Sediment Not seen Urine Bacteria Many Urine Mucus Many Urine Opiates Screen Negative (NEGATIVE) Ur Oxycodone Screen Negative (NEGATIVE) Urine Methadone Screen Negative (NEGATIVE) Ur Propoxyphene Screen Negative (NEGATIVE) Ur Barbiturates Screen Negative (NEGATIVE) Ur Tricyclics Screen Negative (NEGATIVE) Ur Phencyclidine Scrn Negative (NEGATIVE) Ur Amphetamine Screen Negative (NEGATIVE) U Methamphetamines Scrn Negative (NEGATIVE) Urine MDMA Screen Negative (NEGATIVE) U Benzodiazepines Scrn Negative (NEGATIVE) U Cocaine Metab Screen Negative (NEGATIVE) U Marijuana (THC) Screen Negative (NEGATIVE) SARS-CoV-2 RNA (CORBY) (NEGATIVE) 06/16/21 Range/Units 03:15 WBC (4.5-11.0) K/uL RBC (3.30-5.50) M/uL Hgb (12.0-15.0) g/dL Hct (36.0-48.0) % MCV (80-98) fL MCH (27-31) pg MCHC (32-36) % Plt Count (150-400) K/uL Neut % (Auto) (36-66) % Lymph % (Auto) (24-44) % Ida % (Auto) (2-6) % Eos % (Auto) (2-4) % Baso % (Auto) (0-1) % Urine Color (YELLOW) Urine Appearance (CLEAR) Urine pH (5.0-8.0) Ur Specific Marina (1.008-1.030) Urine Protein (NEGATIVE) mg/dL Urine Glucose (UA) (NEGATIVE) mg/dL Urine Ketones (NEGATIVE) mg/dL Urine Occult Blood (NEGATIVE) Urine Nitrite (NEGATIVE) Urine Bilirubin (NEGATIVE) Urine Urobilinogen (0.2-1.0) EU/dL Ur Leukocyte Esterase (NEGATIVE) Urine RBC (0-5) Urine WBC (0-5) Ur Epithelial Cells Amorphous Sediment Urine Bacteria Urine Mucus Urine Opiates Screen (NEGATIVE) Ur Oxycodone Screen (NEGATIVE) Urine Methadone Screen (NEGATIVE) Ur Propoxyphene Screen (NEGATIVE) Ur Barbiturates Screen (NEGATIVE) Ur Tricyclics Screen (NEGATIVE) Ur Phencyclidine Scrn (NEGATIVE) Ur Amphetamine Screen (NEGATIVE) U Methamphetamines Scrn (NEGATIVE) Urine MDMA Screen (NEGATIVE) U Benzodiazepines Scrn (NEGATIVE) U Cocaine Metab Screen (NEGATIVE) U Marijuana (THC) Screen (NEGATIVE) SARS-CoV-2 RNA (CORBY) Negative (NEGATIVE) Med Orders - Current: Current Medications Lactated Ringer's (Ringers, Lactated) 1,000 mls @ 125 mls/hr IV ASDIRECTED YOLANDA Oxytocin/Sodium Chloride (Pitocin In Ns 20 Units/1,000 Ml) 20 unit in 1,000 mls @ 999 mls/hr IV ASDIRECTED YOLANDA; Protocol Ondansetron HCl (Ondansetron 4 Mg/2 Ml Sdv) 4 mg IV Q4H PRN PRN Reason: Nausea/Vomiting Sodium Chloride (Sodium Chloride 0.9% 10 Ml Syringe) 10 ml FLUSH ASDIRECTED PRN PRN Reason: Keep Vein Open Discontinued Medications Ephedrine Sulfate (Ephedrine 50 Mg/Ml Sdv) Confirm Administered Dose 50 mg .ROUTE .STK-MED ONE Stop: 06/16/21 06:10 Ropivacaine (Naropin 0.2%) Confirm Administered Dose 100 mls @ as directed .ROUTE .STK-MED ONE Stop: 06/16/21 06:54 Oxytocin/Sodium Chloride (Pitocin In Ns 20 Units/1,000 Ml) Confirm Administered Dose 20 unit in 1,000 mls @ as directed .ROUTE .STK-MED ONE Stop: 06/16/21 06:10 Lidocaine HCl (Lidocaine 1% 50 Ml Mdv) Confirm Administered Dose 100 ml .ROUTE .STK-MED ONE Stop: 06/16/21 06:11 - Exam Urinary Catheter Total Time: 0Days 0Hours General: Alert, Oriented HEENT: Pupils Equal, Pupils Reactive, EOMI, Mucous Membr. Moist/[place] Neck: Supple Lungs: Normal Respiratory Effort Cardiovascular: Regular Rate, Regular Rhythm GI/Abdominal Exam: Soft, Non-Tender, Pelvis Stable, Distended (Female) Exam: Normal External Exam, Enlarged Uterus, Heart Tones Back Exam: Full Range of Motion Extremities: Normal Inspection, Normal Range of Motion, Non-Tender, Normal Capillary Refill Skin: Warm, Dry, Intact Neurological: No New Focal Deficit Psy/Mental Status: Alert, Normal Affect, Normal Mood - Problem List & Annotations (1) Normal spontaneous vaginal delivery SNOMED Code(s): 26502341, 832730839 Code(s): O80 - ENCOUNTER FOR FULL-TERM UNCOMPLICATED DELIVERY Status: Acute Current Visit: Yes (2) () SNOMED Code(s): 241495644 Code(s): Z78.9 - OTHER SPECIFIED HEALTH STATUS Status: Acute Current Visit: Yes (3) Labial tear SNOMED Code(s): 663781922 Code(s): S31.41XA - LACERATION W/O FOREIGN BODY OF VAGINA AND VULVA, INIT ENCNTR Status: Acute Current Visit: Yes (4) SNOMED Code(s): 12476100 Code(s): Z34.90 - ENCNTR FOR SUPRVSN OF NORMAL , UNSP, UNSP TRIMESTER Status: Acute Current Visit: Yes Qualifiers: Weeks of gestation: 38 weeks Qualified Code(s): Z3A.38 - 38 weeks gestation of - Problem List Review Problem List Initiated/Reviewed/Updated: Yes - Assessment Assessment:: 06/16/21 G2 now P2 at 38/6 weeks gestation Normal spontaneous vaginal delivery 1st degree laceration Strong partner support - Plan Plan:: 06/16/21 in active labor at 38 6/7 weeks gestation GBS negative Epidural in place, pain down to 2/10 Membranes intact Category 1 tracing, did not have a nice strip prior to epidural due to patient on ball but doptone during that time 130 Plan: Anticipate Continue to monitor labor progress 06/16/21 Routine cares Encourage Monitor bleeding Expect discharge at 24-48 hours
[2021-06-16] MEDS ORDERED: Acetaminophen 325 MG Tab, 50 Tab Bulk Bottle PO PRN (12:32)
[2021-06-16] MEDS ORDERED: Benzocaine 20% Top Spray 56 GM Bottle TOP PRN (12:32)
[2021-06-16] MEDS ORDERED: Docusate Sodium 100 MG Cap PO PRN (12:32)
[2021-06-16] MEDS ORDERED: Ibuprofen 200 MG Tab, 24 Tab Bulk Bottle PO PRN (12:32)
[2021-06-16] MEDS ORDERED: Lanolin 100% Cream 40 GM Tube TOP PRN (12:32)
--- NOTE | 2021-06-17 10:56 | PCM.PNPP ---
- General Info Date of Service: 06/17/21 Functional Status: Reports: Pain Controlled - Review of Systems General: Reports: No Symptoms HEENT: Reports: No Symptoms Pulmonary: Reports: No Symptoms Cardiovascular: Reports: No Symptoms Gastrointestinal: Reports: No Symptoms Genitourinary: Reports: No Symptoms Musculoskeletal: Reports: No Symptoms Skin: Reports: No Symptoms Neurological: Reports: No Symptoms Psychiatric: Reports: No Symptoms - General Info Date of Service: 06/17/21 - Patient Data Vital Signs - Most Recent: Last Vital Signs Temp 35.5 C L 06/17/21 08:35 Pulse 81 06/17/21 08:35 Resp 16 06/17/21 08:35 BP 103/53 L 06/17/21 08:35 Pulse Ox 100 06/17/21 08:35 Lab Results - Last 24 Hours: Laboratory Results - last 24 hr 06/17/21 Range/Units 05:53 WBC 13.4 H (4.5-11.0) K/uL RBC 3.86 (3.30-5.50) M/uL Hgb 10.6 L (12.0-15.0) g/dL Hct 32.0 L (36.0-48.0) % MCV 83 (80-98) fL MCH 28 (27-31) pg MCHC 33 (32-36) % Plt Count 298 (150-400) K/uL Neut % (Auto) 75.4 H (36-66) % Lymph % (Auto) 16.2 L (24-44) % [place] % (Auto) 7.0 H (2-6) % Eos % (Auto) 1.3 L (2-4) % Baso % (Auto) 0.1 (0-1) % Med Orders - Current: Current Medications Acetaminophen (Acetaminophen 325 Mg Tab, 50 Tab Bulk Bottle) 0 mg PO Q4H PRN PRN Reason: Pain Last Admin: 06/16/21 15:00 Dose: 650 mg Documented by: Benzocaine (Benzocaine 20% Top Reading 56 Gm Bottle) 0 gm TOP Q4H PRN PRN Reason: Perineal Comfort Measure Last Admin: 06/16/21 17:12 Dose: 1 spray Documented by: Docusate Sodium (Docusate Sodium 100 Mg Cap) 100 mg PO BID PRN PRN Reason: Constipation Last Admin: 06/16/21 21:08 Dose: 100 mg Documented by: Emollient Ointment (Lanolin 100% Cream 40 Gm Tube) 1 gm TOP ASDIRECTED PRN PRN Reason: Sore Nipples Last Admin: 06/16/21 17:13 Dose: 1 applic Documented by: Lactated Ringer's (Ringers, Lactated) 1,000 mls @ 125 mls/hr IV ASDIRECTED YOLANDA Last Admin: 06/16/21 06:00 Dose: 125 mls/hr Documented by: Oxytocin/Sodium Chloride (Pitocin In Ns 20 Units/1,000 Ml) 20 unit in 1,000 mls @ 999 mls/hr IV ASDIRECTED [facility]; Protocol Last Admin: 06/16/21 09:28 Dose: 999 ml/hr, 999 mls/hr Documented by: Ibuprofen (Ibuprofen 200 Mg Tab, 24 Tab Bulk Bottle) 600 mg PO Q6H PRN PRN Reason: Pain Last Admin: 06/16/21 12:42 Dose: 600 mg Documented by: Ondansetron HCl (Ondansetron 4 Mg/2 Ml Sdv) 4 mg IV Q4H PRN PRN Reason: Nausea/Vomiting Sodium Chloride (Sodium Chloride 0.9% 10 Ml Syringe) 10 ml FLUSH ASDIRECTED PRN PRN Reason: Keep Vein Open Discontinued Medications Ephedrine Sulfate (Ephedrine 50 Mg/Ml Sdv) Confirm Administered Dose 50 mg .ROUTE .STK-MED ONE Stop: 06/16/21 06:10 Last Admin: 06/16/21 12:33 Dose: Not Given Documented by: Ropivacaine (Naropin 0.2%) Confirm Administered Dose 100 mls @ as directed .ROUTE .STK-MED ONE Stop: 06/16/21 06:54 Oxytocin/Sodium Chloride (Pitocin In Ns 20 Units/1,000 Ml) Confirm Administered Dose 20 unit in 1,000 mls @ as directed .ROUTE .STK-MED ONE Stop: 06/16/21 06:10 Last Admin: 06/16/21 14:13 Dose: Not Given Documented by: Lidocaine HCl (Lidocaine 1% 50 Ml Mdv) Confirm Administered Dose 100 ml .ROUTE .STK-MED ONE Stop: 06/16/21 06:11 Last Admin: 06/16/21 12:39 Dose: Not Given Documented by: - Infant Interaction Infant Disposition, : [place] in Room with Family Infant Interaction: Holding Infant Feeding: Breastfed ; Nursed Well Support Person: Significant Other - Recovery Exam Fundal Tone: Firm Fundal Level: 1 Fingerbreadths Above Umbilicus Fundal Placement: Midline Lochia Amount: Small Lochia Color: Rubra/Red Perineum Description: Intact, Minimal Bruising/Swelling Episiotomy/Laceration: Approximated Bladder Status: Voiding Urinary Elimination: Voided - Exam General: Alert, Oriented HEENT: Pupils Equal, Pupils Reactive Neck: Supple Lungs: Clear to Auscultation, Normal Respiratory Effort Cardiovascular: Regular Rate, Regular Rhythm GI/Abdominal Exam: Normal Bowel Sounds, Soft, Non-Tender, Pelvis Stable Extremities: Normal Inspection, Normal Range of Motion, Non-Tender, No Pedal Edema, Normal Capillary Refill Skin: Warm, Dry, Intact Neurological: No New Focal Deficit Psy/Mental Status: Alert, Normal Affect, Normal Mood - Problem List & Annotations (1) Active labor at term SNOMED Code(s): 69503690 Code(s): ZKF3162 - Status: Acute Current Visit: Yes (2) () SNOMED Code(s): 046464269 Code(s): Z78.9 - OTHER SPECIFIED HEALTH STATUS Status: Acute Current Visit: Yes (3) Normal spontaneous vaginal delivery SNOMED Code(s): 91878114, 199587018 Code(s): O80 - ENCOUNTER FOR FULL-TERM UNCOMPLICATED DELIVERY Status: Acute Current Visit: Yes - Problem List Review Problem List Initiated/Reviewed/Updated: Yes - My Orders Last 24 Hours: My Active Orders 06/16/21 12:32 Patient Status [ADT] Routine Vital Signs [RC] PFP Consult to [place] [CONS] Routine Acetaminophen [Tylenol Bulk Bottle] See Dose Instructions PO Q4H PRN Benzocaine [Ndub-N-Rozcywe 20% Reading] See Dose Instructions TOP Q4H PRN Docusate Sodium [Colace] 100 mg PO BID PRN Ibuprofen [Motrin Bulk Bottle] 600 mg PO Q6H PRN Lanolin [Lansinoh HPA] 1 gm TOP ASDIRECTED PRN Assess Lochia [WOMSER] Per Unit Routine Assess Uterine Involution [WOMSER] Per Unit Routine 06/16/21 12:33 Ice Therapy [OM.PC] Per Unit Routine Perineal Care [OM.PC] Per Unit Routine Sitz Bath [OM.PC] Per Unit Routine 06/16/21 13:00 Insert Urinary Catheter [OM.PC] Q24H - Assessment Assessment:: 06/16/21 G2 now P2 at 38/6 weeks gestation Normal spontaneous vaginal delivery 1st degree laceration Strong partner support 06/17/21 Day 1 PP, no complications Voiding, pain controlled Bleeding light and FF going well Hgb stable - Plan Plan:: I have read this note and assessed patient and agree with the note written by AYDEE Medrano. Aura Rebolledo CNM 06/17/21 Routine cares Discharge home today Follow up 6 weeks
== END 2021-06-17 15:50 | disposition home or self-care (01) | DRG 807 ==
LOC: JP.OBCHECK 02:48 → UNDOADMIN 06:32 → JP.OB 06:32 → UNDOADMIN 06:54 → JP.OB 06:54 → INTOOBSV 09:26 → OBSVTOIN 09:26 → JP.OB 09:26 → UNDOADMOB 09:26 → JP.MS 12:30
PROVIDERS: ADMIT Advanced Practice Midwife; ATTEND Advanced Practice Midwife
PROC: 10E0XZZ Delivery of Products of Conception, External Approach (ICD-10-PCS; principal; 2021-06-16)
PROC: 10907ZC Drainage of Amniotic Fluid, Therapeutic from Products of Conception, Via Natural or Artificial Opening (ICD-10-PCS; 2021-06-16)
PROC: 0HQ9XZZ Repair Perineum Skin, External Approach (ICD-10-PCS; 2021-06-16)
PROC: 3E0R3BZ Introduction of Anesthetic Agent into Spinal Canal, Percutaneous Approach (ICD-10-PCS; 2021-06-16)
DX: O76 Abnormality in fetal heart rate and rhythm complicating labor and delivery (principal); Z37.0 Single live birth; O70.0 First degree perineal laceration during delivery; Z3A.38 38 weeks gestation of pregnancy; Z20.822 Contact with and (suspected) exposure to COVID-19
CPT/HCPCS: 36415; 51701; 51702; 80305-QW; 81001; 85025; A9270-GY; J2590; J2795; J7120; U0002

== ENCOUNTER 2021-11-20 20:36 | Emergency (ER) | payer OTHER, MEDICAID ==
[2021-11-20] MEDS ORDERED: Ondansetron 4 MG Tab.DIS PO ONE (21:56)
[2021-11-20] MEDS ORDERED: Hyoscyamine 0.125 MG Tab.SL SL ONE (21:56)
== END 2021-11-20 23:50 | disposition home or self-care (01) ==
LOC: JP.ED 20:36
DX: T78.1XXA Other adverse food reactions, not elsewhere classified, initial encounter (principal); Z88.0 Allergy status to penicillin
CPT/HCPCS: 36415; 80053; 85025; 86140; 99282; 99283; A9270-GY; Q0162

== ENCOUNTER 2022-05-14 07:36 | Emergency (ER) | payer OTHER, MEDICAID | END 2022-05-14 09:36 | disposition home or self-care (01) | LOC: JP.ED 07:36 | DX: S52.121A Displaced fracture of head of right radius, initial encounter for closed fracture (principal); Z88.0 Allergy status to penicillin; X50.1XXA Overexertion from prolonged static or awkward postures, initial encounter | CPT/HCPCS: 73070-RT; 99283 ==

== ENCOUNTER 2022-05-25 07:27 | Day surgery (SDC) | payer OTHER, MEDICAID ==
[~2022-05-25 07:27] MED LIST: Bupivacaine 0.5% 50 ML MDV ONE
[2022-05-25] MEDS ORDERED: fentaNYL 250 MCG/5 ML SDV ONE (08:11)
[2022-05-25 08:13] LABS: ESTIMATED GFR 100 mL/min (>60)
[2022-05-25] MEDS ORDERED: Propofol 200 MG/20 ML SDV ONE (08:13)
[2022-05-25] MEDS ORDERED: Succinylcholine 200 MG/10 ML MDV ONE (08:13)
[2022-05-25] MEDS ORDERED: Ondansetron 4 MG/2 ML SDV ONE (08:13)
[2022-05-25] MEDS ORDERED: Dexamethasone 4 MG/ML SDV ONE (08:13)
[2022-05-25] MEDS ORDERED: Neostigmine Methylsulfate 1 MG/ML 5 ML Syringe ONE (08:13)
[2022-05-25] MEDS ORDERED: Rocuronium 50 MG/5 ML Vial ONE (08:13)
[2022-05-25] MEDS ORDERED: Glycopyrrolate 0.2 MG/ML 5 ML MDV ONE (08:13)
[2022-05-25] MEDS ORDERED: Nozin Nasal Sanitizer NASBOTH ONE (08:30)
[2022-05-25] MEDS ORDERED: Lactated Ringers 1,000 ML IV SCH (08:45)
[2022-05-25] MEDS ORDERED: Clindamycin Phosphate 900 MG in Sodium Chloride 0.9% 100 ML IV ONE (09:15)
[2022-05-25] MEDS ORDERED: Clindamycin Phosphate in D5W 900 MG in Premix Bag 1 BAG IV ONE ×2 (09:15)
[2022-05-25] MEDS ORDERED: Morphine 2 MG/ML SYRINGE IVPUSH ONE (11:30)
[2022-05-25] MEDS ORDERED: Acetaminophen/HYDROcodone 325-5 MG Tab PO ONE (12:00)
== END 2022-05-25 13:20 | disposition home or self-care (01) ==
LOC: JP.SDS 07:27
PROVIDERS: ATTEND Specialist
DX: S52.121A Displaced fracture of head of right radius, initial encounter for closed fracture (principal); Z88.0 Allergy status to penicillin; Z01.812 Encounter for preprocedural laboratory examination; Z20.822 Contact with and (suspected) exposure to COVID-19
CPT/HCPCS: 36415; 80053; 84703; 85027; A9270-GY; C1713; J0330; J1100; J2270; J2405; J2704; J2710; J3010; J3490; J7120; U0002

== ENCOUNTER 2023-01-05 20:10 | Emergency (ER) | payer OTHER, MEDICAID ==
[2023-01-05] MEDS ORDERED: diphenhydrAMINE 50 MG/ML SDV IVPUSH ONE (20:45)
[2023-01-05] MEDS ORDERED: Prochlorperazine 10 MG/2 ML SDV IVPUSH ONE (20:45)
[2023-01-05] MEDS ORDERED: Sodium Chloride 0.9% 10 ML Syringe FLUSH PRN (20:45)
[2023-01-05] MEDS ORDERED: Sodium Chloride 0.9% 1,000 ML IV SCH (20:45)
[2023-01-05] MEDS ORDERED: Ketorolac 15 MG/ML SDV IVPUSH ONE (20:45)
[2023-01-05 21:26] LABS: ESTIMATED GFR 100 mL/min (>60)
[2023-01-05 21:28] LABS: TROPONIN I HIGH SENSITIVITY < 4.0 pg/mL (<=60.3)
== END 2023-01-05 23:18 | disposition home or self-care (01) ==
LOC: JP.ED 20:10
DX: G43.019 Migraine without aura, intractable, without status migrainosus (principal); R03.0 Elevated blood-pressure reading, without diagnosis of hypertension; Z88.0 Allergy status to penicillin
CPT/HCPCS: 36415; 70450; 80053; 84443; 84484; 85025; 93005; 93010; 96361; 96374; 96375; 99283; 99284; J0780; J1200; J1885; J3490; J7030

== ENCOUNTER 2023-02-27 08:40 | Day surgery (SDC) | payer OTHER, MEDICAID ==
[~2023-02-27 08:40] MED LIST changes: -Bupivacaine 0.5% 50 ML MDV ONE; +Lactated Ringers 1,000 ML IV SCH; +Nozin Nasal Sanitizer NASBOTH ONE
[2023-02-27] MEDS ORDERED: Midazolam 1 MG/ML 2 ML SDV ONE (08:58)
[2023-02-27] MEDS ORDERED: Propofol 200 MG/20 ML SDV ONE (08:58)
[2023-02-27] MEDS ORDERED: fentaNYL 100 MCG/2 ML SDV ONE ×3 (08:58→10:30)
[2023-02-27 09:02] LABS: HEMATOCRIT 40.5 % (34.3-46.0); HEMOGLOBIN 14.1 g/dL (11.2-15.5); MEAN CORPUSCULAR HEMOGLOBIN 30.5 pg (31.6-35.5); MEAN CORPUSCULAR HGB CONC 34.8 g/dL (31.6-35.5); MEAN CORPUSCULAR VOLUME 87.5 fL (81.4-99.0); RED BLOOD CELL COUNT 4.63 M/uL (3.77-5.24); WHITE BLOOD CELL COUNT,WBC 7.4 K/uL (3.2-11.0)
[2023-02-27 09:16] LABS: ANION GAP 7.7 mmol/L (5.0-14.0); BLOOD UREA NITROGEN,BUN 10 mg/dL (7-18); CALCIUM 8.3 mg/dL (8.5-10.1); CARBON DIOXIDE,CO2 27 mmol/L (21-32); CHLORIDE,CL 105 mmol/L (100-108); CREATININE 0.7 mg/dL (0.6-1.0); ESTIMATED GFR 117 mL/min (>60); GLUCOSE RANDOM 83 mg/dL (74-106); SODIUM,NA 140 mmol/L (140-148)
[2023-02-27] MEDS ORDERED: ceFAZolin 1 GM in Premix Bag 1 BAG IV ONE (09:30)
[2023-02-27] MEDS ORDERED: Bupivacaine 0.5% 50 ML MDV ONE (09:44)
[2023-02-27] MEDS ORDERED: Ondansetron 4 MG/2 ML SDV ONE (10:13)
[2023-02-27] MEDS ORDERED: Dexamethasone 4 MG/ML SDV ONE (10:13)
== END 2023-02-27 12:17 | disposition home or self-care (01) ==
LOC: JP.SDS 08:40
PROVIDERS: ATTEND Specialist
DX: M25.821 Other specified joint disorders, right elbow (principal); M67.2 Synovial hypertrophy, not elsewhere classified; F41.9 Anxiety disorder, unspecified; Z88.0 Allergy status to penicillin
CPT/HCPCS: 24102; 36415; 80048; 81025; 85027; A9270; J0690; J1100; J2250; J2405; J2704; J3010; J3490; J7120

== ENCOUNTER 2023-09-21 00:40 | Emergency (ER) | payer OTHER, MEDICAID ==
[2023-09-21 01:11] LABS: BASOPHILS ABSOLUTE AUTO 0.05 K/uL (0.00-0.10); BASOPHILS PERCENT AUTO 0.7 % (0.1-1.3); EOSINOPHILS ABSOLUTE AUTO 0.14 K/uL (0.00-0.40); EOSINOPHILS PERCENT AUTO 1.8 % (0.0-5.4); HEMATOCRIT 37.1 % (34.3-46.0); IMMATURE GRAN ABSOLUTE AUTO 0.06 K/uL (0.00-0.23); IMMATURE GRAN PERCENT AUTO 0.8 % (0.0-0.7); LYMPHOCYTES ABSOLUTE AUTO 2.38 K/uL (0.8-3.3); LYMPHOCYTES PERCENT AUTO 31.3 % (11.4-47.7); MEAN CORPUSCULAR HEMOGLOBIN 29.9 pg (31.6-35.5); MEAN CORPUSCULAR VOLUME 85.3 fL (81.4-99.0); MONOCYTES ABSOLUTE AUTO 0.66 K/uL (0.20-0.90); MONOCYTES PERCENT AUTO 8.7 % (3.3-12.6); NEUTROPHILS ABSOLUTE AUTO 4.32 K/uL (1.0-7.6); NEUTROPHILS PERCENT AUTO 56.7 % (40.0-78.1); PLATELET COUNT,PLT 311 K/uL (130-375); RED BLOOD CELL COUNT 4.35 M/uL (3.77-5.24); WHITE BLOOD CELL COUNT,WBC 7.6 K/uL (3.2-11.0)
[2023-09-21 01:20] LABS: ALANINE AMINOTRANSFERASE,ALT 42 U/L (12-78); ALBUMIN 3.7 g/dL (3.4-5.0); ALKALINE PHOSPHATASE 55 U/L (46-116); ANION GAP 14.4 mmol/L (5.0-14.0); ASPARTATE AMNIOTRANSFERASE,AST 31 U/L (15-37); BILIRUBIN TOTAL 0.5 mg/dL (0.2-1.0); BLOOD UREA NITROGEN,BUN 10 mg/dL (7-18); CALCIUM 7.8 mg/dL (8.5-10.1); CARBON DIOXIDE,CO2 26 mmol/L (21-32); CHLORIDE,CL 104 mmol/L (100-108); CREATININE 0.6 mg/dL (0.6-1.0); ESTIMATED GFR 121 mL/min (>60); GLUCOSE RANDOM 86 mg/dL (74-106); POTASSIUM,K 3.4 mmol/L (3.6-5.2); PROTEIN TOTAL,TP 7.4 g/dL (6.4-8.2); SODIUM,NA 141 mmol/L (140-148)
[2023-09-21] MEDS: Sodium Chloride 0.9% 50 ML IV STA (01:53)
[2023-09-21] MEDS: Iopamidol 612 MG/ML 100 ML Bottle IV STA (01:53)
[2023-09-21] MEDS ORDERED: Naloxone 0.4 MG/ML SDV IVPUSH PRN (02:49)
[2023-09-21] MEDS: HYDROmorphone 0.5 MG/0.5 ML Syringe IVPUSH ONE (03:11)
[2023-09-21] MEDS: Sodium Chloride 0.9% 1,000 ML IV ONE (03:39)
[2023-09-21] MEDS: Ondansetron 4 MG/2 ML SDV IVPUSH ONE (03:39)
[2023-09-21] MEDS: Prochlorperazine 10 MG/2 ML SDV IVPUSH ONE (04:55)
== END 2023-09-21 08:00 ==
LOC: JP.ED 00:40
DX: S12.000A Unspecified displaced fracture of first cervical vertebra, initial encounter for closed fracture (principal); S22.089A Unspecified fracture of T11-T12 vertebra, initial encounter for closed fracture; V89.2XXA Person injured in unspecified motor-vehicle accident, traffic, initial encounter; Z88.0 Allergy status to penicillin
CPT/HCPCS: 36415; 70450; 71260; 72125; 74177; 76377; 80053; 85025; 96361; 96374; 96375; 99285; J0780; J1170; J2405; J3490; J7030; Q9967